=== PATIENT | female | born 2000 | race African-American/Black ===

== ENCOUNTER 2021-09-22 18:28 | Emergency (ER) | payer SELFPAY ==
[~2021-09-22] VITALS: Ht 162.6 cm; Wt 75.3 kg
[2021-09-22 18:29] VITALS: BP 127/84
== END 2021-09-22 19:18 | disposition left against medical advice (07) ==
LOC: M ED 18:28
DX: Z53.21 Procedure and treatment not carried out due to patient leaving prior to being seen by health care provider (principal)

== ENCOUNTER 2021-11-02 07:30 | Emergency (ER) | payer OTHER, SELFPAY ==
[~2021-11-02] VITALS: Ht 162.6 cm; Wt 78.1 kg
[2021-11-02] MEDS ORDERED: BENA2CRE3 TOP (07:39)
[2021-11-02] MEDS ORDERED: PRED20TA PO (09:59)
[2021-11-02 10:32] VITALS: BP 119/76
== END 2021-11-02 10:46 | disposition home or self-care (01) ==
LOC: M ED 07:30
DX: L25.9 Unspecified contact dermatitis, unspecified cause (principal)

== ENCOUNTER 2022-08-09 15:07 | Emergency (ER) | payer OTHER ==
[~2022-08-09] VITALS: Ht 162.6 cm; Wt 68.2 kg
[~2022-08-09 15:07] MED LIST: BENA2CRE3 TOP; PRED20TA PO
[2022-08-09 15:14] VITALS: BP 142/89
[2022-08-09] MEDS ORDERED: LIDOCAINE W/EPINEPHRINE 1% 20ML VIAL SC ONE (15:20)
[2022-08-09] MEDS ORDERED: BACI500O8 TOP (16:18)
[2022-08-09] MEDS ORDERED: NEOSPORIN OINT 0.9 GM PKT TOP ONE (16:20)
== END 2022-08-09 16:53 | disposition home or self-care (01) ==
LOC: EDBD 15:07 → M ED 15:07
DX: S71.011A Laceration without foreign body, right hip, initial encounter (principal); Y04.8XXA Assault by other bodily force, initial encounter; Y92.009 Unspecified place in unspecified non-institutional (private) residence as the place of occurrence of the external cause; Y93.89 Activity, other specified; Y99.8 Other external cause status

== ENCOUNTER 2022-08-22 11:02 | Emergency (ER) | payer OTHER ==
[~2022-08-22] VITALS: Ht 162.6 cm; Wt 74.3 kg
[~2022-08-22 11:02] MED LIST changes: +BACI500O8 TOP
[2022-08-22 11:03] VITALS: BP 116/74
== END 2022-08-22 12:11 | disposition home or self-care (01) ==
LOC: M ED 11:02
DX: Z48.02 Encounter for removal of sutures (principal); Z79.52 Long term (current) use of systemic steroids; Z79.899 Other long term (current) drug therapy

== ENCOUNTER 2023-06-06 13:16 | Emergency (ER) | payer OTHER ==
[~2023-06-06] VITALS: Ht 162.6 cm; Wt 85.2 kg
[2023-06-06 13:17] VITALS: BP 127/75; TEMP 96.9; O2SAT 100
== END 2023-06-06 18:34 | disposition left against medical advice (07) ==
LOC: M ED 13:16
DX: Z53.21 Procedure and treatment not carried out due to patient leaving prior to being seen by health care provider (principal)

== ENCOUNTER 2023-12-08 23:56 | Emergency (ER) | payer OTHER ==
[~2023-12-08] VITALS: Ht 162.6 cm; Wt 81.0 kg
[2023-12-09 00:17] VITALS: TEMP 98.5
[2023-12-09 01:03] LABS: BASO # 0.1 10^3/uL (0.0-0.2); BASO % 0.7 % (0.0-1.0); EOS # 0.1 10^3/uL (0.0-0.5); EOS % 0.8 % (0.0-3.0); HEMATOCRIT 33.8 % (36.0-47.0); LYMPH # 2.3 10^3/uL (1.5-5.0); LYMPH % 32.1 % (24.0-44.0); MEAN CORPUSCULAR HEMOGLOBIN 27.5 pg (27.0-33.0); MEAN CORPUSCULAR HGB CONC 32.5 g/dl (32.0-36.5); MEAN CORPUSCULAR VOLUME 84.5 fl (80.0-96.0); MONO # 0.6 10^3/uL (0.0-0.8); MONO % 8.1 % (2.0-8.0); NEUTROPHILS # 4.2 10^3/uL (1.5-8.5); PLATELET COUNT, AUTOMATED 238 10^3/uL (150-450); WHITE BLOOD COUNT 7.2 10^3/uL (4.0-10.0)
[2023-12-09 01:14] LABS: ALBUMIN 3.6 G/DL (3.2-5.2); ALKALINE PHOSPHATASE 49 U/L (46-116); ALT/SGPT 21 U/L (7.0-40); AST/SGOT 18 U/L (<34); BILIRUBIN,TOTAL 0.2 MG/DL (0.3-1.2); BLOOD UREA NITROGEN 15 MG/DL (9-23); CALCIUM LEVEL 8.9 MG/DL (8.5-10.1); CARBON DIOXIDE LEVEL 24 MMOL/L (20-31); CHLORIDE LEVEL 108 MMOL/L (98-107); CK-MB VALUE MASS < 1.0 NG/ML (<3.6); CREATININE FOR GFR 0.85 MG/DL (0.55-1.30); GLOMERULAR FILTRATION RATE > 60.0 (>60); GLUCOSE, FASTING 92 MG/DL (60-100); POTASSIUM SERUM 3.7 MMOL/L (3.5-5.1); SODIUM LEVEL 137 MMOL/L (136-145)
[2023-12-09 01:26] LABS: CPK CREATINE PHOSPHOKINASE 122 U/L (34-145); MB/CK RELATIVE INDEX 0.81 (< OR =4)
[2023-12-09 03:14] LABS: CK-MB VALUE MASS < 1.0 NG/ML (<3.6)
[2023-12-09 03:15] LABS: CPK CREATINE PHOSPHOKINASE 103 U/L (34-145); MB/CK RELATIVE INDEX 0.97 (< OR =4)
[2023-12-09] MEDS ORDERED: ISOVUE-370 76% 100ML VIAL As Ordered ONE (03:40)
[2023-12-09] MEDS: KETOROLAC 30 MG/ML 1ML VIAL IV ONE (04:14)
[2023-12-09] MEDS: NS 500 ML IV ONE (04:15)
[2023-12-09 05:05] VITALS: BP 95/69; O2SAT 99
== END 2023-12-09 05:10 | disposition home or self-care (01) ==
LOC: M ED 23:56
DX: R07.89 Other chest pain (principal); R00.1 Bradycardia, unspecified; F41.9 Anxiety disorder, unspecified
CPT/HCPCS: 71045; 71275; 80053; 82550; 82553; 84484; 85025; 93005; 96361; 96374; 99284; J1885; Q9967

== ENCOUNTER 2024-03-05 15:19 | Emergency (ER) | payer OTHER ==
[~2024-03-05] VITALS: Ht 162.6 cm; Wt 83.7 kg
[2024-03-05 16:19] LABS: APPEARANCE, URINE CLEAR (CLEAR); BACTERIA, URINE AUTO NEGATIVE (NEGATIVE); BILIRUBIN, URINE AUTO NEGATIVE (NEGATIVE); BLOOD, URINE BLOOD NEGATIVE (NEGATIVE); COLOR, URINE STRAW (YELLOW); GLUCOSE, URINE (UA) AUTO NEGATIVE (NEGATIVE); KETONE, URINE AUTO NEGATIVE (NEGATIVE); LEUKOCYTE ESTERASE, URINE AUTO NEGATIVE (NEGATIVE); MUCUS, URINE SMALL (NEGATIVE); NITRITE, URINE AUTO NEGATIVE (NEGATIVE); PROTEIN, URINE AUTO NEGATIVE (NEGATIVE); RBC, URINE AUTO 0 /HPF (0-3); SPECIFIC GRAVITY URINE AUTO 1.005 (1.002-1.035); SQUAMOUS EPITHELIAL CELL UR AU 0 /HPF (0-6); UROBILINOGEN, URINE AUTO 0.2 mg/dL (0.0-2.0); WBC, URINE AUTO 1 /HPF (0-3)
[2024-03-05 17:21] LABS: Trichomonas vaginalis (AMP) NOT DETECTED (NEGATIVE)
[2024-03-05 17:45] LABS: GC DNA AMPLIFICATION NEGATIVE (NEGATIVE)
[2024-03-05 18:34] LABS: HEPATITIS B SURFACE ANTIBODY POSITIVE (POSITIVE)
[2024-03-05 18:45] LABS: HEPATITIS B SURFACE ANTIGEN NEGATIVE (NEGATIVE)
[2024-03-05 18:58] LABS: HIV 1&2 SCREEN NEGATIVE (NEGATIVE)
[2024-03-05 19:07] LABS: HEPATITIS C VIRUS ABY INDEX < 0.02 INDEX (<0.8)
[2024-03-05] MEDS ORDERED: FLUC150T9 PO (19:11)
[2024-03-05 19:20] VITALS: BP 125/78; TEMP 98.6; O2SAT 100
[2024-03-05] MEDS: FLUCONAZOLE 50MG TABLET PO ONE (19:20)
== END 2024-03-05 19:20 | disposition home or self-care (01) ==
LOC: M ED 15:19
DX: B37.31 Acute candidiasis of vulva and vagina (principal)

== ENCOUNTER 2024-07-15 15:30 | Emergency (ER) | payer OTHER ==
[~2024-07-15] VITALS: Ht 162.6 cm; Wt 77.3 kg
[~2024-07-15 15:30] MED LIST changes: +FLUC150T9 PO
[2024-07-15] MEDS ORDERED: HYDR-3363 PO (15:56)
[2024-07-15] MEDS ORDERED: SERT-141 PO (15:56)
[2024-07-15 19:13] LABS: KETONE, URINE AUTO RFX NEGATIVE (NEGATIVE); LEUKOCYTE ESTERASE UR AUTO RFX NEGATIVE (NEGATIVE); MUCUS, URINE RFX SMALL (NEGATIVE); NITRITE, URINE AUTO RFX NEGATIVE (NEGATIVE); RBC, URINE AUTO RFX 2 /HPF (0-3); SQUAM EPITHELIAL CELL UR AURFX 1 /HPF (0-6); WBC, URINE AUTO RFX 2 /HPF (0-3)
[2024-07-15 19:15] VITALS: BP 130/96; TEMP 98.3; O2SAT 100
== END 2024-07-15 19:20 | disposition home or self-care (01) ==
LOC: M ED 15:30
DX: N76.0 Acute vaginitis (principal); F41.9 Anxiety disorder, unspecified; Z79.899 Other long term (current) drug therapy

== ENCOUNTER 2024-12-03 14:35 | Emergency (ER) | payer OTHER ==
[~2024-12-03] VITALS: Ht 162.6 cm; Wt 89.7 kg
[~2024-12-03 14:35] MED LIST changes: +HYDR-3363 PO; +SERT-141 PO
[2024-12-03 15:47] LABS: BASO # 0.0 10^3/uL (0.0-0.2); BASO % 0.7 % (0.0-1.0); EOS # 0.1 10^3/uL (0.0-0.5); EOS % 1.1 % (0.0-3.0); LYMPH # 2.1 10^3/uL (1.5-5.0); LYMPH % 37.7 % (24.0-44.0); MONO # 0.6 10^3/uL (0.0-0.8); MONO % 10.2 % (2.0-8.0); NEUTROPHILS # 2.8 10^3/uL (1.5-8.5); NEUTROPHILS % 50.1 % (36.0-66.0); PLATELET COUNT, AUTOMATED 240 10^3/uL (150-450)
[2024-12-03 16:07] LABS: D-DIMER QUANT 0.35 ug/mL (<0.5); INR 0.92
[2024-12-03 16:14] LABS: CALCIUM LEVEL 8.7 MG/DL (8.5-10.1); CARBON DIOXIDE LEVEL 26 MMOL/L (20-31); CHLORIDE LEVEL 105 MMOL/L (98-107); CPK CREATINE PHOSPHOKINASE 196 U/L (34-145); CREATININE FOR GFR 0.77 MG/DL (0.55-1.30); GLOMERULAR FILTRATION RATE > 90.0 (>60); POTASSIUM SERUM 3.8 MMOL/L (3.5-5.1); SODIUM LEVEL 136 MMOL/L (136-145)
[2024-12-03 16:20] LABS: HCG, SERUM QUALITATIVE NEGATIVE (NEGATIVE)
[2024-12-03 17:02] LABS: CK-MB VALUE MASS < 1.0 NG/ML (<3.6)
[2024-12-03 17:34] LABS: CK-MB VALUE MASS < 1.0 NG/ML (<3.6)
[2024-12-03 17:35] LABS: CPK CREATINE PHOSPHOKINASE 181 U/L (34-145)
[2024-12-03 17:46] VITALS: BP 146/70; TEMP 97.5; O2SAT 100
== END 2024-12-03 18:18 | disposition home or self-care (01) ==
LOC: M ED 14:35
DX: R07.89 Other chest pain (principal); F41.9 Anxiety disorder, unspecified; Z79.899 Other long term (current) drug therapy